=== PATIENT | male | born 1950 | race Caucasian/White ===

== ENCOUNTER → 2016-07-04 | Outpatient (CLI) | payer BC ==
[~2016-07-04] MED LIST: ASPI81TA28 PO; CALC-214 PO; CRS10 PO; MISC1CAP65 PO; TPRSR25 PO; ferrous sulfate PO
[2016-07-04 13:22] LABS: BASO % 0.6 %; BASO ABS # 0.03 K/uL (0-0.2); COMPLETE YES; EOS % 4.3 %; HEMATOCRIT 39.6 % (42-52); LYMPH % 35.9 %; LYMPH ABS # 1.75 K/uL (1.2-3.4); MEAN CELL VOLUME 93.4 fL (80-100); MEAN CORPUSCULAR HEMOGLOBIN 31.4 pg (25-34); MEAN CORPUSCULAR HGB CONC 33.6 g/dl (32-36); MEAN PLATELET VOLUME 10.5 fL (7.4-10.4); MONO % 6.8 %; NEUT % 52.4 %; PLATELET COUNT 173 K/uL (130-400); RED BLOOD COUNT 4.24 M/uL (4.7-6.1); WHITE BLOOD COUNT 4.88 K/uL (4.8-10.8)
[2016-07-04 13:30] LABS: ALT/SGPT 27 U/L (12-78); BLOOD UREA NITROGEN 16 mg/dl (7-18); C-REACTIVE PROTEIN < 0.29 mg/dl (0-0.29); CALCIUM 9.1 mg/dl (8.5-10.1); CARBON DIOXIDE 29 mmol/L (21-32); CHLORIDE 106 mmol/L (98-107); CREATININE 0.84 mg/dl (0.60-1.40); GLUCOSE 91 mg/dl (70-99); POTASSIUM 4.1 mmol/L (3.5-5.1); SODIUM 142 mmol/L (136-145)
[2016-07-04 13:35] LABS: ALKALINE PHOSPHATASE 79 U/L (45-117); AST/SGOT 29 U/L (15-37); FERRITIN 373.6 ng/ml (8.0-388.0)
--- NOTE | 2016-07-13 06:24 | CODING QUERY NO DIAGNOSIS ---
TREATMENT RENDERED WITHOUT A DIAGNOSIS Peri GREWAL, To promote full compliance with coding requirements relating to patient care, physician participation is requested in all cases of solution developer uncertainty. Please assist us with providing a diagnosis/symptom for the test(s) below: A diagnosis/symptom was not documented on your Order. A valid diagnosis/symptom is required to bill all insurances. Please remember that we are unable to code a diagnosis of rule out, probable, possible, questionable, or suspected. Tests that require a diagnosis: * CBC W/AUTO DIFF DIAGNOSIS: * LDH DIAGNOSIS: * CMP DIAGNOSIS: * C-REACTIVE PROTEIN DIAGNOSIS: * FERRITIN DIAGNOSIS: DATE OF SERVICE: 07/04/16 Provider Signature: Date: Thank you Sohail Wooten [facility] Information Management Once completed, please kindly fax back to [phone] For questions please call [phone]
== END | disposition home or self-care (01) ==
LOC: C.LABMFLN 07:03
PROVIDERS: ATTEND Nurse Practitioner
DX: C43.61 Malignant melanoma of right upper limb, including shoulder (principal)

== ENCOUNTER → 2016-10-12 | Outpatient (CLI) | payer BC ==
[2016-10-12 13:21] LABS: BASO % 0.5 %; BASO ABS # 0.02 K/uL (0-0.2); COMPLETE YES; EOS % 6.9 %; HEMATOCRIT 38.7 % (42-52); LYMPH % 30.7 %; LYMPH ABS # 1.25 K/uL (1.2-3.4); MEAN CELL VOLUME 95.1 fL (80-100); MEAN CORPUSCULAR HEMOGLOBIN 30.7 pg (25-34); MEAN CORPUSCULAR HGB CONC 32.3 g/dl (32-36); MEAN PLATELET VOLUME 10.5 fL (7.4-10.4); MONO % 8.4 %; NEUT % 53.5 %; PLATELET COUNT 177 K/uL (130-400); RED BLOOD COUNT 4.07 M/uL (4.7-6.1); WHITE BLOOD COUNT 4.07 K/uL (4.8-10.8)
[2016-10-12 15:08] LABS: ALB/GLOB RATIO 1.1 (0.9-2); ALT/SGPT 26 U/L (12-78); AST/SGOT 23 U/L (15-37); BLOOD UREA NITROGEN 18 mg/dl (7-18); C-REACTIVE PROTEIN < 0.29 mg/dl (0-0.29); CALCIUM 9.4 mg/dl (8.5-10.1); CARBON DIOXIDE 30 mmol/L (21-32); CHLORIDE 106 mmol/L (98-107); CREATININE 0.85 mg/dl (0.60-1.40); GLUCOSE 91 mg/dl (70-99); POTASSIUM 4.3 mmol/L (3.5-5.1); SODIUM 142 mmol/L (136-145)
[2016-10-12 15:11] LABS: ALKALINE PHOSPHATASE 76 U/L (45-117); FERRITIN 335.9 ng/ml (8.0-388.0)
== END | disposition home or self-care (01) ==
LOC: C.LABMFLN 08:09
PROVIDERS: ATTEND Nurse Practitioner
DX: C43.61 Malignant melanoma of right upper limb, including shoulder (principal)

== ENCOUNTER → 2016-11-17 | Outpatient (CLI) | payer BC ==
[2016-11-17 13:24] LABS: THYROID STIMULATING HORMONE 3.18 uIu/ml (0.300-4.500)
[2016-11-18 16:41] LABS: MICROSOMAL AB 79 IU/ML (<9); THYROGLOBULIN 0.5 NG/ML (2.8-40.9)
== END | disposition home or self-care (01) ==
LOC: C.LABMFLN 11:14
PROVIDERS: ATTEND Family Medicine
DX: E06.9 Thyroiditis, unspecified (principal)

== ENCOUNTER → 2017-01-26 | Outpatient (CLI) | payer BC ==
[2017-01-26 13:27] LABS: BASO % 0.4 %; BASO ABS # 0.02 K/uL (0-0.2); COMPLETE YES; HEMATOCRIT 38.5 % (42-52); IG% 0.2 %; LYMPH % 19.5 %; LYMPH ABS # 1.09 K/uL (1.2-3.4); MEAN CELL VOLUME 93.2 fL (80-100); MEAN CORPUSCULAR HEMOGLOBIN 30.8 pg (25-34); MEAN PLATELET VOLUME 10.5 fL (7.4-10.4); MONO % 9.3 %; NEUT % 67.6 %; PLATELET COUNT 182 K/uL (130-400); RED BLOOD COUNT 4.13 M/uL (4.7-6.1)
[2017-01-26 13:40] LABS: ALB/GLOB RATIO 1.1 (0.9-2); ALT/SGPT 21 U/L (12-78); AST/SGOT 23 U/L (15-37); BLOOD UREA NITROGEN 20 mg/dl (7-18); BUN/CREATININE RATIO 23.2 (10-20); CALCIUM 9.2 mg/dl (8.5-10.1); CARBON DIOXIDE 29 mmol/L (21-32); CHLORIDE 106 mmol/L (98-107); CREATININE 0.85 mg/dl (0.60-1.40); GLUCOSE 81 mg/dl (70-99); POTASSIUM 4.1 mmol/L (3.5-5.1); SODIUM 141 mmol/L (136-145)
[2017-01-26 13:43] LABS: ALKALINE PHOSPHATASE 84 U/L (45-117); C-REACTIVE PROTEIN 0.34 mg/dl (0-0.29)
== END | disposition home or self-care (01) ==
LOC: C.LABMFLN 07:00
PROVIDERS: ATTEND Nurse Practitioner Family
DX: C43.61 Malignant melanoma of right upper limb, including shoulder (principal)

== ENCOUNTER → 2017-05-05 | Outpatient (CLI) | payer BC ==
[2017-05-05 13:05] LABS: BASO ABS # 0.04 K/uL (0-0.2); COMPLETE YES; HEMATOCRIT 38.5 % (42-52); LYMPH % 31.3 %; LYMPH ABS # 1.25 K/uL (1.2-3.4); MEAN CELL VOLUME 93.2 fL (80-100); MEAN CORPUSCULAR HEMOGLOBIN 31.2 pg (25-34); MEAN CORPUSCULAR HGB CONC 33.5 g/dl (32-36); MEAN PLATELET VOLUME 10.3 fL (7.4-10.4); NEUT % 51.7 %; PLATELET COUNT 201 K/uL (130-400); RED BLOOD COUNT 4.13 M/uL (4.7-6.1); WHITE BLOOD COUNT 3.99 K/uL (4.8-10.8)
[2017-05-05 13:45] LABS: BLOOD UREA NITROGEN 18 mg/dl (7-18); CREATININE 0.93 mg/dl (0.60-1.40); GLUCOSE 84 mg/dl (70-99)
[2017-05-05 13:46] LABS: ALKALINE PHOSPHATASE 85 U/L (45-117); ALT/SGPT 22 U/L (12-78); AST/SGOT 21 U/L (15-37); BUN/CREATININE RATIO 18.8 (10-20); C-REACTIVE PROTEIN < 0.29 mg/dl (0-0.29); CALCIUM 9.1 mg/dl (8.5-10.1); CARBON DIOXIDE 30 mmol/L (21-32); CHLORIDE 105 mmol/L (98-107); POTASSIUM 4.4 mmol/L (3.5-5.1); SODIUM 139 mmol/L (136-145)
[2017-05-05 13:48] LABS: CHOLESTEROL/HDL RATIO 4.9; PROSTATE SPECIFIC ANTIGEN 2.94 ng/ml (0.000-4.000); THYROID STIMULATING HORMONE 3.52 uIu/ml (0.300-4.500)
== END | disposition home or self-care (01) ==
LOC: C.LABMFLN 07:01
PROVIDERS: ATTEND Family Medicine
DX: E78.5 Hyperlipidemia, unspecified (principal); Z12.5 Encounter for screening for malignant neoplasm of prostate; E06.9 Thyroiditis, unspecified

== ENCOUNTER → 2017-05-20 | Outpatient (CLI) | payer BC ==
--- NOTE | 2017-05-20 11:52 | DIAGNOSTIC IMAGING REPORT ---
CHEST 2 VIEWS ROUTINE CLINICAL HISTORY: Melanoma. COMPARISON STUDY: Chest radiograph January 05, 2016. FINDINGS: Lung volumes are normal. No pneumothorax or pleural effusion is present. Pulmonary vascularity is normal. Cardiomediastinal silhouette is normal. Right axillary surgical clips are noted. Upper mediastinal prominence is unchanged and likely related to summation artifact with skeletal structures. No pulmonary nodules are identified although radiography has decreased sensitivity for detection of pulmonary nodules. IMPRESSION: No acute cardiopulmonary findings. Electronically signed by: Osmel Balderas M.D. 05/20/2017 11:50 AM Dictated Date/Time: 05/20/2017 11:49 AM
== END | disposition home or self-care (01) ==
LOC: C.RAD 10:26
PROVIDERS: ATTEND Nurse Practitioner Family
DX: C43.61 Malignant melanoma of right upper limb, including shoulder (principal)

== ENCOUNTER → 2017-11-08 | Outpatient (CLI) | payer OTHER ==
--- NOTE | 2017-11-08 14:23 | DIAGNOSTIC IMAGING REPORT ---
PET/CT SKULL-THIGH CLINICAL HISTORY: 67 years-old Male presenting with MELANOMA of the right upper limb/shoulder, prior outside PET/CT with mildly FDG avid focus adjacent to the posterior right ninth rib and FDG avid bilateral hilar lymph nodes. TECHNIQUE: PET/CT was performed from the vertex through the feet following the intravenous administration of 14.039 mCi of F18-FDG. Blood glucose level 77 mg/dL. The injection was performed at 10:50 AM and imaging began at 12:50 PM and 1:[address] was performed for attenuation correction purposes and anatomic localization. COMPARISON: No priors available for comparison. CT DOSE (mGy.cm): The estimated cumulative dose is 2499.72. FINDINGS: Head and neck: No FDG-avid mass in the head or neck. No sites of photopenia in the brain parenchyma. No FDG avid or enlarged lymph nodes in the neck. Chest: Postsurgical changes of the proximal portion of the posterior right upper extremity. No focal FDG avidity in this region. Normal thyroid and thoracic inlet. Postsurgical changes of right axillary lymph node dissection. No abnormal FDG avidity in this region. Mild FDG avidity of bilateral subcentimeter hilar lymph nodes. No suspicious FDG avid axillary, supraclavicular, or mediastinal lymphadenopathy. Evaluation of the zay on anatomic imaging limited without intravenous contrast. Atherosclerosis of the aorta. Normal heart size. Coronary artery calcification. No pericardial or pleural effusion. Minimal dependent changes likely atelectasis. No FDG avid focal nodule or infiltrate. Airways patent. Abdomen and pelvis: Normal physiologic distribution of radiotracer in the gastrointestinal and genitourinary tracts. No FDG avid lymphadenopathy or mass lesion. Subcentimeter photopenic hypodensity in the liver indeterminate but likely hepatic cyst or hamartoma. Normal liver density. Circumferential bladder wall thickening indicating chronic bladder outlet obstruction in the setting of prostatomegaly. Musculoskeletal: No FDG-avid or destructive osseous lesion. IMPRESSION: 1. Initial PET/CT demonstrates no evidence of residual or recurrent disease at the posterior right upper extremity near the shoulder. Additionally, no evidence of FDG avid metastatic disease or lymphadenopathy. 2. Evidence of chronic bladder obstruction secondary to prostatomegaly. Electronically signed by: Buster Washburn M.D. 11/08/2017 2:22 PM Dictated Date/Time: 11/08/2017 2:07 PM
== END | disposition home or self-care (01) ==
LOC: C.PET 10:09
PROVIDERS: ATTEND Nurse Practitioner Family
DX: C43.61 Malignant melanoma of right upper limb, including shoulder (principal)